=== PATIENT | male | born 1995 | race Caucasian/White ===

== ENCOUNTER → 2023-01-09 | Outpatient (CLI) | payer BC ==
--- NOTE | 2023-01-09 21:55 | MR ---
EXAMINATION TYPE: MR knee LT wo con DATE OF EXAM: 01/09/2023 COMPARISON: Outside left knee x-ray January 03, 2023 HISTORY: Left knee pain medial and lateral sides with swelling over 1-1.5 years. TECHNIQUE: Multiplanar, multisequence images of the knee is performed without IV contrast. FINDINGS: MEDIAL MENISCUS: Opiates like signal posterior horn extends to inferior articular surface sagittal im age 29. LATERAL MENISCUS: Anterior and posterior horns are intact without tear. CRUCIATE LIGAMENTS: The anterior and posterior cruciate ligaments are intact and unremarkable. COLLATERAL LIGAMENTS: The medial collateral ligament and lateral collateral ligament complex are inta ct. Small amount of adjacent fluid superficial to the medial collateral ligament. EXTENSOR MECHANISM: Visualized quadriceps and patellar tendons are intact. EFFUSION: Moderate to large size suprapatellar joint effusion. POPLITEAL CYST: No popliteal/desir cyst. TRICOMPARTMENT SPACES: Mild tricompartment joint space loss. No significant spurring is seen. CARTILAGE: Tricompartmental articular cartilage is preserved. BONE MARROW SIGNAL: Some heterogeneous increased T2 signal posterior medial aspect of the distal medi al femoral condyle sagittal image 29 and coronal image 24 corresponding to axial image 31. OTHER: No additional significant abnormality is appreciated. IMPRESSION: 1. Oblique full-thickness tear posterior horn medial meniscus. 2. Moderate to large-sized suprapatellar joint effusion. 3. Mild MCL sprain injury. Abnormal adjacent bone marrow edema posterior medial aspect of the distal medial femoral condyle near proximal MCL insertion.
== END | disposition home or self-care (01) ==
LOC: RADMRIMAIN 20:15
PROVIDERS: ATTEND Orthopaedic Surgery
DX: S83.412A Sprain of medial collateral ligament of left knee, initial encounter (principal); M25.462 Effusion, left knee; M23.222 Derangement of posterior horn of medial meniscus due to old tear or injury, left knee; X58.XXXA Exposure to other specified factors, initial encounter

== ENCOUNTER 2023-04-12 08:16 | Day surgery (SDC) | payer BC ==
[2023-04-09 15:46] VITALS: BMI 42.2
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
[~2023-04-12 08:16] MED LIST: DEXAMETHASONE SOD PHOSPHATE 4 MG/ML 1 ML VIAL IV ONE; HYDROmorphone 0.5 MG/0.5 ML SYRINGE IVP PRN; LACTATED RINGERS 1,000 ML IV SCH; MIDAZOLAM 2 MG/2 ML VIAL IV PRN; ONDANSETRON 4 MG/2 ML VIAL IVP ONE; SCOPOLAMINE 1 MG/72 HR PATCH TRANSDERM ONE; ceFAZolin 3 GM in SODIUM CHLORIDE 0.9% 100 ML IVPB PRN
[2023-04-12 09:07] LABS: Glucose,Whole Blood 176 mg/dL (70-110)
[2023-04-12] MEDS ORDERED: SUCCINYLCHOLINE CHLORIDE 200 MG/10 ML VIAL IV ONE (10:08)
[2023-04-12] MEDS ORDERED: LIDOCAINE 1% INJ 10MG/ML (20 ML MDV) ONE (10:08)
[2023-04-12] MEDS ORDERED: PROPOFOL 10 MG/ML 20 ML VIAL IV ONE (10:08)
[2023-04-12] MEDS ORDERED: MIDAZOLAM 2 MG/2 ML VIAL ONE (10:08)
[2023-04-12] MEDS ORDERED: fentaNYL (PF) 50 MCG/ML 2 ML AMP ONE (10:08)
[2023-04-12] MEDS ORDERED: EPINEPHrine (PF) 1 ML in SODIUM CHLORIDE 0.9% IRRIGATIO 3,000 ML IRRIGATION ONE ×4 (10:13)
--- NOTE | 2023-04-12 10:49 | P.OP ---
Date of Procedure: 04/12/23 Preoperative Diagnosis: Left knee internal derangement Postoperative Diagnosis: Left knee posterior medial meniscal tear Procedure(s) Performed: Left knee arthroscopic partial medial meniscectomy Anesthesia: OMEROA Surgeon: Dwayne Norris Estimated Blood Loss (ml): 10 Pathology: none sent Condition: stable Disposition: PACU Indications for Procedure: The patient's a 27-year-old male presents after a previous twisting injury of his left knee with persistent pain and mechanical symptoms despite attempted conservative measures. A discussion of the risks and benefits of operative intervention versus continued conservative measures was made with patient. He opted to proceed with surgery. Operative risks to include infection, neurovascular injury, development of blood clots, possible incomplete resolution of symptoms, possible worsening symptoms and need for subsequent procedures was discussed. Informed consent was obtained. Operative Findings: As below Description of Procedure: The patient was brought to the operating room, and after induction of general anesthesia examined the left knee. Collaterals were stable, Grace was negative, and posterior drawer was negative. The left lower extremity was prepped and draped in a normal fashion. A superior lateral portal was made through a 3 mm skin incision superior and lateral to the patella. This was used for outflow. A lateral portal was made through a 5 mm vertical skin incision lateral to the patella tendon above the joint line. Diagnostic arthroscopy was performed. On inspection of the medial compartment oblique tear involving the posterior most aspect of the medial meniscus in the white-red junction was noted. This was not amenable to repair.. This was debrided back to stable base with straight baskets and a motorized shaver. On inspection of the notch, the anterior cruciate ligament appeared to be intact. On inspection of the lateral compartment no significant cartilage or meniscal pathology was noted. On inspection of the patellofemoral articulation, minimal degenerative changes were noted. The gutters were clear debris. The knee was then thoroughly irrigated. The portals were closed with Steri-Strips. A sterile dressing was applied in addition to a compression stocking. The patient was awoken from general anesthesia and transferred to recovery room in good condition. Blood loss was estimated at 10 mL. No complications were incurred.
[2023-04-12 11:22] VITALS: TEMP 96.8
[2023-04-12] MEDS ORDERED: LACTATED RINGERS 1,000 ML IV ONE (11:35)
[2023-04-12] MEDS ORDERED: HYDROcodone/APAP 7.5-325MG 1 EACH TAB ONE (11:49)
[2023-04-12 11:55] LABS: Glucose,Whole Blood 178 mg/dL (70-110)
[2023-04-12 12:13] VITALS: BP 114/68; PULSE 74; RESP 15
== END 2023-04-12 12:28 | disposition home or self-care (01) ==
LOC: OR 08:16
PROVIDERS: ATTEND Orthopaedic Surgery
DX: S83.242A Other tear of medial meniscus, current injury, left knee, initial encounter (principal); I10 Essential (primary) hypertension; E11.9 Type 2 diabetes mellitus without complications; F41.9 Anxiety disorder, unspecified; F32.A Depression, unspecified; E66.9 Obesity, unspecified; Z68.41 Body mass index [BMI] 40.0-44.9, adult; Z87.891 Personal history of nicotine dependence; Z79.84 Long term (current) use of oral hypoglycemic drugs; Z79.899 Other long term (current) drug therapy; X58.XXXA Exposure to other specified factors, initial encounter
CPT/HCPCS: 29881; J2250; J0330; J1100; J0690; J2405; J0171; J2001; J3010; J2704; J1170